=== PATIENT | female | born 1990 | race African-American/Black ===

== ENCOUNTER 2020-05-31 19:16 | Emergency (ER) | payer MEDICAID ==
[~2020-05-31] VITALS: Ht 167.6 cm; Wt 104.0 kg
[2020-05-31] MEDS ORDERED: ACETAMINOPHEN 325MG TABLET PO ONE (20:30)
[2020-05-31 20:39] LABS: BG BASE EXCESS -3.6 mmol/L (-2.0-2.0); BG CARBOXYHEMOGLOBIN 0.3 % (0.5-1.5); BG DEOXYHEMOGLOBIN 6.3 % (0.0-5.0); BG FRACTION INSPIRED OXYGEN 21; BG HCO3 ACT 20.4 mmol/L (22.0-26.0); BG METHEMOGLOBIN 0.2 % (0.0-1.5); BG OXYGEN SATURATION 93.7 % (92.0-98.5); BG OXYHEMOGLOBIN 93.2 % (94.0-97.0); BG PH 7.408 (7.350-7.450); BG PO2 71.6 mmHg (75.0-100.0); BG SAMPLE SITE RIGHT RADIAL; BG TOTAL HEMOGLOBIN 11.7 g/dL (12.0-18.0); BG VENT MODE ROOM AIR
[2020-05-31 22:21] VITALS: BP 141/74
== END 2020-05-31 22:22 | disposition home or self-care (01) ==
LOC: ER 19:16
DX: J18.9 Pneumonia, unspecified organism (principal); R07.89 Other chest pain
CPT/HCPCS: 36600; 71045; 82375; 82805; 93005; 99285

== ENCOUNTER 2020-06-01 20:52 | Inpatient (IN) | payer MEDICAID ==
[~2020-06-01] VITALS: Ht 167.6 cm; Wt 66.2 kg
[2020-06-01 23:17] LABS: BASOPHILS % 0.1 % (0.0-2.0); HEMATOCRIT. 34.8 % (36.0-48.0); HEMOGLOBIN. 11.4 g/dL (12.0-16.0); LYMPHOCYTES % 30.2 % (20.0-50.0); MEAN CORPUSCULAR HEMOGLOBIN 26.6 pg (28.0-32.0); MEAN CORPUSCULAR VOLUME 80.9 fL (81.0-99.0); MEAN PLATELET VOLUME 7.9 fl (7.4-10.4); MONOCYTES % 4.4 % (2.0-8.0); NEUTROPHILS % 65.3 % (40.0-76.0); PLATELET 239 x1000/uL (130-400); RED CELL DISTRIBUTION WIDTH 15.6 % (11.6-14.6)
[2020-06-01 23:23] LABS: CHLORIDE 107 mEq/L (98-107)
[2020-06-01] MEDS ORDERED: SODIUM CHLORIDE 0.9% 1000ML BAG (SEPSIS BOLUS) IV ONE (23:30)
[2020-06-01] MEDS ORDERED: CEFTRIAXONE 1 G PREMIX 50 ML IV ONE (23:30)
[2020-06-02] MEDS ORDERED: ACETAMINOPHEN 650MG/20.3ML UDC PO NR (00:30)
[2020-06-02] MEDS ORDERED: DIPHENHYDRAMINE 50MG/ML VIAL IV PRN (02:15)
[2020-06-02] MEDS ORDERED: MAGNESIUM/ALUMINUM HYDROXIDE/SIMETHICONE 30ML UDC PO PRN (02:15)
[2020-06-02] MEDS ORDERED: ZOLPIDEM TARTRATE 5MG TABLET PO PRN (02:15)
[2020-06-02] MEDS ORDERED: ALBUTEROL 6.7GM HFA INHALER ORI PRN (02:15)
[2020-06-02] MEDS ORDERED: ONDANSETRON HCL 4MG/2ML INJ IV PRN (02:15)
[2020-06-02 04:00] VITALS: BP 113/66
[2020-06-02] MEDS ORDERED: AZITHROMYCIN 500 MG in DEXT 5% WATER 250 ML IV SCH (05:00)
[2020-06-02] MEDS ORDERED: ENOXAPARIN 80MG/0.8ML SYR SUBCUT SCH (05:00)
[2020-06-02 05:30] VITALS: BP 113/69
[2020-06-02] MEDS: SODIUM CHLORIDE 0.9% INJ 3ML FLUSH IVF SCH ×3 (06:00→22:14)
[2020-06-02] MEDS: ACETAMINOPHEN 325MG TABLET PO PRN (06:30)
[2020-06-02 08:00] VITALS: BP 100/61
[2020-06-02] MEDS: DEXAMETHASONE 4MG TABLET PO SCH (09:03)
[2020-06-02 09:46] LABS: CHLORIDE 114 mEq/L (98-107)
[2020-06-02 12:00] VITALS: BP_SYST 118; BP_SYST 120; BP_DIAS 66; BP_DIAS 73
[2020-06-02] MEDS: ALBUTEROL 6.7GM HFA INHALER ORI SCH ×2 (15:15→21:55)
[2020-06-02 16:00] VITALS: BP 122/64
[2020-06-02] MEDS ORDERED: GUAIFENESIN/CODEINE 200-20MG/10ML UDC PO PRN (17:30)
[2020-06-02] MEDS ORDERED: POTASSIUM CHLORIDE 20MEQ TABLET SR PO NR (17:30)
[2020-06-02 20:00] VITALS: BP 117/80
[2020-06-02] MEDS ORDERED: CEFTRIAXONE 1 G PREMIX 50 ML IV SCH (21:00)
[2020-06-02] MEDS: FAMOTIDINE 20MG TABLET PO SCH (22:13)
[2020-06-02] MEDS: GUAIFENESIN 600MG ER TABLET PO SCH (22:13)
[2020-06-02] MEDS: ENOXAPARIN 120MG/0.8ML SYR SUBCUT SCH (22:14)
[2020-06-02] MEDS: CEFTRIAXONE 1 G PREMIX 50 ML IV SCH (23:35)
[2020-06-03] VITALS: BP 99/64
[2020-06-03] MEDS: ACETAMINOPHEN 325MG TABLET PO PRN ×3 (01:50→21:55)
[2020-06-03] MEDS: ALBUTEROL 6.7GM HFA INHALER ORI SCH ×5 (02:25→18:52)
[2020-06-03 04:00] VITALS: BP 114/80
[2020-06-03] MEDS: SODIUM CHLORIDE 0.9% INJ 3ML FLUSH IVF SCH ×3 (05:13→21:23)
[2020-06-03 08:00] VITALS: BP 108/76
[2020-06-03] MEDS: GUAIFENESIN 600MG ER TABLET PO SCH ×2 (08:06→21:22)
[2020-06-03] MEDS: ENOXAPARIN 120MG/0.8ML SYR SUBCUT SCH ×2 (08:06→21:23)
[2020-06-03] MEDS: DEXAMETHASONE 4MG TABLET PO SCH (08:06)
[2020-06-03] MEDS: AZITHROMYCIN 500 MG in DEXT 5% WATER 250 ML IV SCH (08:21)
[2020-06-03 12:30] VITALS: BP 103/63
[2020-06-03 16:00] VITALS: BP 122/61
[2020-06-03 20:00] VITALS: BP 108/68
[2020-06-03] MEDS: FAMOTIDINE 20MG TABLET PO SCH (21:22)
[2020-06-03] MEDS: CEFTRIAXONE 1 G PREMIX 50 ML IV SCH (21:23)
[2020-06-03] MEDS ORDERED: LORAZEPAM 2MG/ML CPJ IV PRN (23:15)
[2020-06-04] VITALS: BP 126/81
[2020-06-04] MEDS: ALBUTEROL 6.7GM HFA INHALER ORI SCH ×4 (00:15→18:13)
[2020-06-04 04:00] VITALS: BP 107/73
[2020-06-04] MEDS: SODIUM CHLORIDE 0.9% INJ 3ML FLUSH IVF SCH ×3 (05:13→21:45)
[2020-06-04 08:48] VITALS: BP 95/60
[2020-06-04] MEDS: DEXAMETHASONE 4MG TABLET PO SCH (09:01)
[2020-06-04] MEDS: AZITHROMYCIN 500 MG in DEXT 5% WATER 250 ML IV SCH (09:02)
[2020-06-04] MEDS: ENOXAPARIN 120MG/0.8ML SYR SUBCUT SCH ×2 (09:02→21:44)
[2020-06-04] MEDS: GUAIFENESIN 600MG ER TABLET PO SCH ×2 (09:02→21:43)
[2020-06-04 11:18] VITALS: BP 110/77
[2020-06-04 16:40] VITALS: BP 113/62
[2020-06-04 20:00] VITALS: BP 101/56
[2020-06-04] MEDS: FAMOTIDINE 20MG TABLET PO SCH (21:43)
[2020-06-04] MEDS: CEFTRIAXONE 1 G PREMIX 50 ML IV SCH (21:44)
[2020-06-05 00:25] VITALS: BP 105/64
[2020-06-05] MEDS: ALBUTEROL 6.7GM HFA INHALER ORI SCH ×4 (00:40→18:23)
[2020-06-05 04:00] VITALS: BP 120/72
[2020-06-05] MEDS: SODIUM CHLORIDE 0.9% INJ 3ML FLUSH IVF SCH ×3 (06:03→21:06)
[2020-06-05 08:00] VITALS: BP 112/69
[2020-06-05] MEDS: GUAIFENESIN 600MG ER TABLET PO SCH ×2 (08:21→21:05)
[2020-06-05] MEDS: AZITHROMYCIN 500 MG in DEXT 5% WATER 250 ML IV SCH (08:21)
[2020-06-05] MEDS: DEXAMETHASONE 4MG TABLET PO SCH (08:21)
[2020-06-05] MEDS: ENOXAPARIN 120MG/0.8ML SYR SUBCUT SCH ×2 (08:22→21:06)
[2020-06-05 11:00] LABS: CHLORIDE 110 mEq/L (98-107)
[2020-06-05 12:00] VITALS: BP 153/91
[2020-06-05 13:41] LABS: HEPATITIS B SURFACE ANTIGEN NEGATIVE
[2020-06-05 14:10] LABS: HEPATITIS A AB IGM NEGATIVE (NEGATIVE)
[2020-06-05 16:00] VITALS: BP 107/70
[2020-06-05 20:00] VITALS: BP 99/58
[2020-06-05] MEDS: ACETAMINOPHEN 325MG TABLET PO PRN (21:02)
[2020-06-05] MEDS: CEFTRIAXONE 1 G PREMIX 50 ML IV SCH (21:05)
[2020-06-05] MEDS: FAMOTIDINE 20MG TABLET PO SCH (21:05)
[2020-06-06] VITALS: BP 100/61
[2020-06-06] MEDS: ALBUTEROL 6.7GM HFA INHALER ORI SCH ×4 (00:26→18:23)
[2020-06-06] MEDS: TEMAZEPAM 15MG CAPSULE PO PRN ×2 (00:26→20:06)
[2020-06-06 04:00] VITALS: BP 107/71
[2020-06-06 08:03] VITALS: BP 113/74
[2020-06-06] MEDS: AZITHROMYCIN 500 MG in DEXT 5% WATER 250 ML IV SCH (09:11)
[2020-06-06] MEDS: DEXAMETHASONE 4MG TABLET PO SCH (09:11)
[2020-06-06] MEDS: GUAIFENESIN 600MG ER TABLET PO SCH ×2 (09:11→20:06)
[2020-06-06] MEDS: ENOXAPARIN 120MG/0.8ML SYR SUBCUT SCH ×2 (09:11→20:05)
[2020-06-06 12:04] VITALS: BP 113/74
[2020-06-06] MEDS: SODIUM CHLORIDE 0.9% INJ 3ML FLUSH IVF SCH ×2 (13:00→21:26)
[2020-06-06 16:07] VITALS: BP 119/77
[2020-06-06 20:00] VITALS: BP 122/73
[2020-06-06] MEDS: FAMOTIDINE 20MG TABLET PO SCH (20:06)
[2020-06-06] MEDS: CEFTRIAXONE 1 G PREMIX 50 ML IV SCH (21:26)
[2020-06-07] VITALS: BP 120/77
[2020-06-07] MEDS: ALBUTEROL 6.7GM HFA INHALER ORI SCH ×3 (00:42→19:00)
[2020-06-07 04:00] VITALS: BP 100/63
[2020-06-07] MEDS: SODIUM CHLORIDE 0.9% INJ 3ML FLUSH IVF SCH ×3 (06:35→21:10)
[2020-06-07 08:00] VITALS: BP 123/80
[2020-06-07] MEDS: GUAIFENESIN 600MG ER TABLET PO SCH ×2 (08:06→21:09)
[2020-06-07] MEDS: DEXAMETHASONE 4MG TABLET PO SCH (08:07)
[2020-06-07] MEDS: ENOXAPARIN 120MG/0.8ML SYR SUBCUT SCH ×2 (08:07→21:09)
[2020-06-07] MEDS: AZITHROMYCIN 500 MG in DEXT 5% WATER 250 ML IV SCH (08:07)
[2020-06-07 12:00] VITALS: BP 116/77
[2020-06-07 16:00] VITALS: BP 108/63
[2020-06-07 20:00] VITALS: BP 100/65
[2020-06-07] MEDS: FAMOTIDINE 20MG TABLET PO SCH (21:09)
[2020-06-07] MEDS: CEFTRIAXONE 1 G PREMIX 50 ML IV SCH (21:10)
[2020-06-07] MEDS: TEMAZEPAM 15MG CAPSULE PO PRN (21:52)
[2020-06-08] VITALS: BP 157/69
[2020-06-08] MEDS: ALBUTEROL 6.7GM HFA INHALER ORI SCH ×4 (00:14→18:33)
[2020-06-08 04:00] VITALS: BP 118/81
[2020-06-08] MEDS: SODIUM CHLORIDE 0.9% INJ 3ML FLUSH IVF SCH ×3 (06:13→21:10)
[2020-06-08 08:00] VITALS: BP 100/65
[2020-06-08] MEDS: AZITHROMYCIN 500 MG in DEXT 5% WATER 250 ML IV SCH (08:31)
[2020-06-08] MEDS: GUAIFENESIN 600MG ER TABLET PO SCH ×2 (08:31→20:13)
[2020-06-08] MEDS: DEXAMETHASONE 4MG TABLET PO SCH (08:32)
[2020-06-08] MEDS: ENOXAPARIN 120MG/0.8ML SYR SUBCUT SCH ×2 (08:32→20:13)
[2020-06-08 12:00] VITALS: BP 100/69
[2020-06-08 16:00] VITALS: BP 115/60
[2020-06-08] MEDS: FERROUS SULFATE 325MG TABLET PO SCH (18:33)
[2020-06-08 19:00] LABS: BG BASE EXCESS -1.7 mmol/L (-2.0-2.0); BG CARBOXYHEMOGLOBIN 0.3 % (0.5-1.5); BG DEOXYHEMOGLOBIN 4.5 % (0.0-5.0); BG FRACTION INSPIRED OXYGEN 21; BG HCO3 ACT 21.8 mmol/L (22.0-26.0); BG METHEMOGLOBIN 0.2 % (0.0-1.5); BG OXYGEN SATURATION 95.5 % (92.0-98.5); BG PCO2 33.1 mmHg (35.0-45.0); BG PH 7.437 (7.350-7.450); BG PO2 79.4 mmHg (75.0-100.0); BG SAMPLE SITE RIGHT RADIAL; BG VENT MODE ROOM AIR
[2020-06-08 20:00] VITALS: BP 108/62
[2020-06-08] MEDS: FAMOTIDINE 20MG TABLET PO SCH (20:13)
[2020-06-08] MEDS: TEMAZEPAM 15MG CAPSULE PO PRN (20:14)
[2020-06-09] VITALS: BP 93/50
[2020-06-09] MEDS: ALBUTEROL 6.7GM HFA INHALER ORI SCH ×3 (00:45→12:38)
[2020-06-09 04:00] VITALS: BP 100/67
[2020-06-09] MEDS: SODIUM CHLORIDE 0.9% INJ 3ML FLUSH IVF SCH ×2 (06:07→12:39)
[2020-06-09 08:00] VITALS: BP 100/64
[2020-06-09] MEDS: GUAIFENESIN 600MG ER TABLET PO SCH (08:46)
[2020-06-09] MEDS: FERROUS SULFATE 325MG TABLET PO SCH ×2 (08:46→12:36)
[2020-06-09] MEDS: DEXAMETHASONE 4MG TABLET PO SCH (08:47)
[2020-06-09] MEDS: ENOXAPARIN 120MG/0.8ML SYR SUBCUT SCH (08:47)
[2020-06-09] MEDS: ACETAMINOPHEN 325MG TABLET PO PRN (13:24)
[2020-06-09 16:28] VITALS: BP 103/69
== END 2020-06-09 17:59 | disposition home or self-care (01) | DRG 720 ==
LOC: ER 20:56 → 7WST 06-02 00:30 → ENRESERV 06-02 04:37
PROVIDERS: ADMIT Internal Medicine; ATTEND Internal Medicine
DX: A41.89 Other specified sepsis (principal); U07.1 COVID-19; J96.01 Acute respiratory failure with hypoxia; J12.89 Other viral pneumonia; E66.9 Obesity, unspecified; F41.9 Anxiety disorder, unspecified; Z82.49 Family history of ischemic heart disease and other diseases of the circulatory system; Z56.0 Unemployment, unspecified; Z68.23 Body mass index [BMI] 23.0-23.9, adult
CPT/HCPCS: 36415; 36600; 71045; 80048; 80053; 80076; 82375; 82728; 82805; 83605; 83735; 83880; 84484; 85025; 86140; 86705; 86709; 86803; 87340; 93005; 94618; 94640; 99291; J0456; J0696; J1200; J1650; J2060; J7030; J7060; J8540; U0003-CS

== ENCOUNTER 2022-12-25 21:48 | Emergency (ER) | payer MEDICAID, OTHER ==
[~2022-12-25] VITALS: Ht 167.6 cm; Wt 104.0 kg
[~2022-12-25 21:48] MED LIST: KEPP500 MT
[2022-12-25 22:22] VITALS: BP 143/107
[2022-12-25] MEDS ORDERED: SODIUM CHLORIDE 0.9% 500 ML IV ONE (22:30)
[2022-12-25] MEDS ORDERED: ACETAMINOPHEN 325MG TABLET PO ONE (22:45)
[2022-12-25 23:55] LABS: BASOPHILS % 0.4 % (0.0-2.0); EOSINOPHILS % 1.2 % (0.0-5.0); HEMATOCRIT. 31.4 % (36.0-48.0); HEMOGLOBIN. 10.1 g/dL (12.0-16.0); LYMPHOCYTES % 39.4 % (20.0-50.0); MEAN CORPUSCULAR HEMOGLOBIN 26.2 pg (28.0-32.0); MEAN CORPUSCULAR VOLUME 81.6 fL (81.0-99.0); MEAN PLATELET VOLUME 6.9 fl (7.4-10.4); MONOCYTES % 7.2 % (2.0-8.0); NEUTROPHILS % 51.8 % (40.0-76.0); PLATELET 348 x1000/uL (130-400); RED BLOOD CELL COUNT 3.84 mill/uL (4.2-5.4)
[2022-12-26 00:02] LABS: CHLORIDE 108 mEq/L (98-107)
[2022-12-26 00:14] LABS: HCG SCREEN NEGATIVE
[2022-12-26] MEDS ORDERED: FERR-71 MT (00:53)
[2022-12-26] MEDS ORDERED: ACET-2708 MT (00:53)
[2022-12-26] MEDS ORDERED: ACETAMINOPHEN 325MG TABLET PO NR (01:45)
[2022-12-26 01:49] LABS: CLARITY URINE CLOUDY (CLEAR); COLOR URINE RED (YELLOW); KETONES URINE NEGATIVE (NEGATIVE); LEUKOCYTE ESTERASE URINE 1+ (NEGATIVE); NITRITE URINE NEGATIVE (NEGATIVE); OCCULT BLOOD URINE 3+ (NEGATIVE); PROTEIN URINE 2+ (NEGATIVE); SPECIFIC GRAVITY URINE 1.029 (1.005-1.030); UROBILINOGEN URINE 0.2 E.U./dL (0.2-1.0)
== END 2022-12-26 01:50 | disposition home or self-care (01) ==
LOC: ER 22:02
DX: D25.9 Leiomyoma of uterus, unspecified (principal); N93.8 Other specified abnormal uterine and vaginal bleeding; D64.9 Anemia, unspecified; R03.0 Elevated blood-pressure reading, without diagnosis of hypertension; R00.0 Tachycardia, unspecified; R94.31 Abnormal electrocardiogram [ECG] [EKG]
CPT/HCPCS: 36415; 76830; 76856; 80053; 81003; 81025; 84703; 85025; 86850; 86900; 86901; 93005; 99285; J7030